=== PATIENT | female | born 1975 | race Caucasian/White ===

== ENCOUNTER 2024-05-04 04:18 | Emergency (ER) | payer OTHER, SELFPAY ==
[2024-05-04] VITALS (9 sets, daily range): BP systolic 97–137; BP diastolic 46–80; PULSE 59–87; RESP 15–18; TEMP 36.7; O2SAT 94–99; BMI 24.7
--- NOTE | 2024-05-04 04:40 | ED_ITS ---
Documented by User: Bandar Ariza DO 05/04/24 04:42 HPI - Nausea/Vomiting/Diarrhea 2 General: Chief complaint: Nausea/Vomiting/Diarrhea Stated complaint: N/V Time Seen by Provider: 05/04/24 04:21 History of Present Illness: Patient presents with nausea and vomiting. Patient does have a seizure history and is on 3 seizure medicines. Patient is unable to keep those down for the most part except most recent dose. Approximate last 24 hours and has multiple seizures during this time. Patient getting dehydrated. Patient says he thinks she may have got food poisoning. Related Data Home Medications Medication Instructions Recorded Confirmed cenobamate 50 mg tablet (Xcopri) 50 mg PO 1XD 05/04/24 05/04/24 gabapentin 100 mg capsule mg 05/04/24 05/04/24 lamotrigine 100 mg tablet 300 mg PO 2XD 05/04/24 05/04/24 zonisamide 100 mg capsule 300 mg PO BID 05/04/24 05/04/24 Previous Rx's Medication Instructions Recorded lorazepam 2 mg tablet (Ativan) 1 - 2 mg (0.5 - 1 x 2 mg) PO Q6H 05/04/24 PRN nausea and vomiting #14 tabs Allergies Allergy/AdvReac Type Severity Reaction Status Date / Time levetiracetam [From [facility]] Allergy ADR-Agitate Verified 05/04/24 04:29 d Review of Systems 2 General: Reports: 10 or more systems reviewed and unremarkable except in HPI and below PFSH ED 2 PFSH: Medical History (Updated 05/04/24 @ 09:08 by Steven Kent DO) Seizure Surgical History (Updated 05/04/24 @ 06:33 by Steven Kent DO) Hx of appendectomy Hx of cholecystectomy Hx of hysterectomy Physical Exam 2 Const: COMMON NORMALS: no acute distress, average body habitus, patient oriented x3, no limitations, healthy appearing, alert and well nourished HENMT: COMMON NORMALS: normocephalic, atraumatic, hearing grossly normal bilaterally, external ears normal, Normal external nose present and moist oral mucous membranes HEAD & SCALP: normocephalic and atraumatic NOSE: Normal external nose present EXTERNAL EAR: Yes external ears normal Neck/C-Spine: COMMON NORMALS: no JVD Chest: COMMONS NORMALS: normal inspection of the chest and normal palpation of entire chest wall Resp: COMMON NORMALS: normal respiratory effort, No retractions, No use of accessory muscles and clear to auscultation bilaterally AUSCULTATION: clear to auscultation bilaterally Cardio: COMMON NORMALS: no JVD, regular rate, regular rhythm, S1 normal heart sound present, S2 normal heart sound present, No gallops present (Cardio), No clicks present (Cardio), No murmurs present (Cardio) and No rub (Cardio) R ATE: regular rate RHYTHM: regular rhythm HEART SOUNDS: S1 normal heart sound present and S2 normal heart sound present GI: COMMON NORMALS: Normal to inspection, nondistended, normoactive bowel sounds present, Soft to palpation, non-tender, No hepatosplenomegaly present and no masses PALPATION: Yes Soft to palpation and Yes No hepatosplenomegaly present Neuro: COMMON NORMALS: patient oriented x3 SENSORIUM/ORIENTATION: Yes alert Course 2 Vital Signs: Vital signs: Vital Signs Temperature 98.0 F 05/04/24 04:24 Pulse Rate 71 05/04/24 09:21 Respiratory Rate 15 05/04/24 05:28 Blood Pressure 134/73 05/04/24 09:21 Pulse Oximetry 96 05/04/24 09:21 Oxygen Delivery Me thod Room Air 05/04/24 09:00 MDM - Nausea/Vomiting/Diarrhea Differential Diagnosis Likely food poisoning and gastroenteritis Medical Records I reviewed the patient's medical records. Lab Data I reviewed the patient's lab results. 05/04/24 04:44 05/04/24 04:44 Radiology Impressions Abdomen/Pelvis CT 05/04/24 06:32 IMPRESSION: No acute subdiaphragmatic pathology. Laboratory Results WBC 11.50 10^3/uL (3.29-11.43) H 05/04/24 04:44 RBC 4.35 10^6/uL (3.85-5.65) 05/04/24 04:44 Hgb 13.50 g/dL (11.27-16.99) 05/04/24 04:44 Hct 40.2 % (36-47) 05/04/24 04:44 MCV 92.4 fl (85-98) 05/04/24 04:44 MCH 31.0 pg (27-33) 05/04/24 04:44 MCHC 33.6 g/dL (30-55) 05/04/24 04:44 RDW 11.9 % (12.1-15.1) L 05/04/24 04:44 Plt Count 294 10^3/cmm (157-399) 05/04/24 04:44 MPV 9.2 fL (7.4-10.4) 05/04/24 04:44 Neut % (Auto) 92.5 % 05/04/24 04:44 Lymph % (Auto) 4.3 % 05/04/24 04:44 [place] % (Auto) 2.8 % 05/04/24 04:44 Eos % (Auto) 0.0 % 05/04/24 04:44 Baso % (Auto) 0.1 % 05/04/24 04:44 Neut # (Auto) 10.64 10^3/uL (1.8-7.7) H 05/04/24 04:44 Lymph # (Auto) 0.5 10^3/uL (0.8-4.8) L 05/04/24 04:44 [place] # (Auto) 0.3 10^3/uL (0.2-0.9) 05/04/24 04:44 Eos # (Auto) 0.0 10^3/uL (0.0-0.8) 05/04/24 04:44 Baso # (Auto) 0.0 10^3/uL (0.0-0.1) 05/04/24 04:44 Nucleated RBC % (auto) 0 % 05/04/24 04:44 Nucleated RBCs # 0.0 /100WBC 05/04/24 04:44 Sodium 135 mmol/L (136-145) L 05/04/24 04:44 Potassium 3.1 mmol/L (3.5-5.1) L 05/04/24 04:44 Chloride 102 mmol/L (98-107) 05/04/24 04:44 Carbon Dioxide 18 mmol/L (22-29) L 05/04/24 04:44 Anion Gap 18.1 (5-19) 05/04/24 04:44 BUN 16 mg/dL (6-20) 05/04/24 04:44 Creatinine 0.8 mg/dL (0.5-0.9) 05/04/24 04:44 GFR Calculation 76.9 mL/min (90-130) L 05/04/24 04:44 Glucose 123 mg/dL (65-115) H 05/04/24 04:44 Calculated Osmolality 283 mOsm/kg (285-295) L 05/04/24 04:44 Calcium 8.8 mg/dL (8.5-10.5) 05/04/24 04:44 Magnesium 1.7 mg/dL (1.7-2.3) 05/04/24 04:44 Total Bilirubin 0.2 mg/dL (0.15-1.2) 05/04/24 04:44 AST 38 U/L (0-32) H 05/04/24 04:44 ALT 55 U/L (0-33) H 05/04/24 04:44 Alkaline Phosphatase 157 U/L (35-105) H 05/04/24 04:44 Total Protein 6.9 g/dL (6.6-8.7) 05/04/24 04:44 Albumin 3.9 g/dL (3.5-5.2) 05/04/24 04:44 Globulin 3.0 g/dL (1.3-4.6) 05/04/24 04:44 Lipase 22 U/L (13-60) 05/04/24 04:44 Urine Color Yellow (Yellow) 05/04/24 06:27 Urine Appearance Clear (CLEAR) 05/04/24 06:27 Urine pH 6.0 (5-7) 05/04/24 06:27 Ur Specific [place] 1.018 (1.005-1.030) 05/04/24 06:27 Urine Protein 1+ (Negative) A 05/04/24 06:27 Urine Glucose (UA) Negative (Normal) 05/04/24 06:27 Urine Ketones 2+ (Negative) H 05/04/24 06:27 Urine Blood Negative (Negative) 05/04/24 06:27 Urine Nitrate Negative (Negative) 05/04/24 06:27 Urine Bilirubin Negative (Negative) 05/04/24 06:27 Urine Urobilinogen 1.0 mg/dL (Negative) 05/04/24 06:27 Ur Leukocyte Esterase Negative (Negative) 05/04/24 06:27 Urine RBC 0-4 /hpf (0-2) H 05/04/24 06:27 Urine WBC 0-4 /hpf (0-5) H 05/04/24 06:27 Ur Squamous Epith Cells 5-10 /hpf (0-5) H 05/04/24 06:27 Amorphous Sediment Not Reportable 05/04/24 06:27 Urine Bacteria 1+ /hpf (NONE) H 05/04/24 06:27 Hyaline Casts 0-4 /lpf H 05/04/24 06:27 Urine Mucus 1+ /hpf 05/04/24 06:27 All radiology interpretation(s) finalized by discharge Discharge Plan Discharge Patient Disposition: Home Clinical Impression: Nausea & vomiting, Seizure Condition: Stable Prescriptions: New Ativan 2 mg tablet 1 - 2 mg PO Q6H PRN (Reason: nausea and vomiting) Qty: 14 0RF No Action Xcopri 50 mg tablet 50 mg PO 1XD lamotrigine 100 mg tablet 300 mg PO 2XD zonisamide 100 mg Capsule 300 mg PO BID gabapentin 100 mg capsule Discharge Orders: Discharge ED (Routine); Ordered 05/04/24 Ordered By: Steven Kent Discharge Diet: Clear Liquid Discharge Activity: Resume usual activity Patient Instructions: Opioid Safety, Pain Management Activity Restrictions/Additional Instructions: Thank you for choosing [facility] for your healthcare needs today. It is very important that you follow up as instructed or that you return to the Emergency Department should you have concerns or if your condition changes or worsens in any way. You are seen in the emergency room for persistent nausea and vomiting. Laboratory status showed a very slight elevation in your white count as well as a slight increase in your liver enzymes. A CT of your abdomen was done in the emergency room did not show any acute pathology. Your potassium was also slightly low. Recommend that you use a clear liquid diet for the next 1 to 2 days and advance as tolerated. Because of your seizure history we gave you Ativan to use for nausea vomiting as needed. This medication is very safe to use with a history of seizures but can be somewhat sedating, avoid driving or using any tools or equipment or participating in any activities that may be risky when somewhat sedated. Do recommend you follow-up with your primary care doctor to have repeat liver functions and recheck of your potassium done when you return home. Sign Out Sign Out Data: Patient Sign Out occurred on 05/04/24 at 05:48. Patient's care was discussed, and care was transferred from Bandar Ariza DO to Steven Kent DO. Coding Level of Care Code ED [employer] for [employer] Documented by User: Steven Kent DO 05/04/24 11:31 HPI - Nausea/Vomiting/Diarrhea 2 General: Chief complaint: Nausea/Vomiting/Diarrhea Stated complaint: N/V Time Seen by Provider: 05/04/24 04:21 Related Data Home Medications Medication Instructions Recorded Confirmed cenobamate 50 mg tablet (Xcopri) 50 mg PO 1XD 05/04/24 05/04/24 gabapentin 100 mg capsule mg 05/04/24 05/04/24 lamotrigine 100 mg tablet 300 mg PO 2XD 05/04/24 05/04/24 zonisamide 100 mg capsule 300 mg PO BID 05/04/24 05/04/24 Previous Rx's Medication Instructions Recorded lorazepam 2 mg tablet (Ativan) 1 - 2 mg (0.5 - 1 x 2 mg) PO Q6H 05/04/24 PRN nausea and vomiting #14 tabs Allergies Allergy/AdvReac Type Severity Reaction Status Date / Time levetiracetam [From [facility]] Allergy ADR-Agitate Verified 05/04/24 04:29 d PFSH ED 2 PFSH: Medical History (Updated 05/04/24 @ 09:08 by Steven Kent DO) Seizure Surgical History (Updated 05/04/24 @ 06:33 by Steven Kent DO) Hx of appendectomy Hx of cholecystectomy Hx of hysterectomy Course 2 Vital Signs: Vital signs: Vital Signs Temperature 98.0 F 05/04/24 04:24 Pulse Rate 71 05/04/24 09:21 Respiratory Rate 15 05/04/24 05:28 Blood Pressure 134/73 05/04/24 09:21 Pulse Oximetry 96 05/04/24 09:21 Oxygen Delivery Me thod Room Air 05/04/24 09:00 MDM - Nausea/Vomiting/Diarrhea Medical Decision Making Care assumed at change of shift from Dr. Ariza. Patient has not had any further nausea or vomiting. All of her medications are p.o. for seizure she did not take any last night reports she had 4 seizures overnight she not had any since she got here she did have really good improvement of the nausea with the Ativan. was able to retrieve her oral medications from the car given to her without any problems she did not have any further vomiting. At this point they like to be discharged they are heading back to [place]. Labs and imaging reviewed no significant findings. I do not think there is any reason to admit her or seizure issue has been a longstanding issue for him is very present poorly controlled despite 3 medications. Will use Ativan for nausea and vomiting as this also will have no protective seizures as opposed to using higher doses of typical antiemetics. CT abdomen pelvis did not show any significant pathology. Follow-up with her primary care doctor. Lab Data 05/04/24 04:44 05/04/24 04:44 Radiology Impressions Abdomen/Pelvis CT 05/04/24 06:32 IMPRESSION: No acute subdiaphragmatic pathology. Laboratory Results WBC 11.50 10^3/uL (3.29-11.43) H 05/04/24 04:44 RBC 4.35 10^6/uL (3.85-5.65) 05/04/24 04:44 Hgb 13.50 g/dL (11.27-16.99) 05/04/24 04:44 Hct 40.2 % (36-47) 05/04/24 04:44 MCV 92.4 fl (85-98) 05/04/24 04:44 MCH 31.0 pg (27-33) 05/04/24 04:44 MCHC 33.6 g/dL (30-55) 05/04/24 04:44 RDW 11.9 % (12.1-15.1) L 05/04/24 04:44 Plt Count 294 10^3/cmm (157-399) 05/04/24 04:44 MPV 9.2 fL (7.4-10.4) 05/04/24 04:44 Neut % (Auto) 92.5 % 05/04/24 04:44 Lymph % (Auto) 4.3 % 05/04/24 04:44 [place] % (Auto) 2.8 % 05/04/24 04:44 Eos % (Auto) 0.0 % 05/04/24 04:44 Baso % (Auto) 0.1 % 05/04/24 04:44 Neut # (Auto) 10.64 10^3/uL (1.8-7.7) H 05/04/24 04:44 Lymph # (Auto) 0.5 10^3/uL (0.8-4.8) L 05/04/24 04:44 [place] # (Auto) 0.3 10^3/uL (0.2-0.9) 05/04/24 04:44 Eos # (Auto) 0.0 10^3/uL (0.0-0.8) 05/04/24 04:44 Baso # (Auto) 0.0 10^3/uL (0.0-0.1) 05/04/24 04:44 Nucleated RBC % (auto) 0 % 05/04/24 04:44 Nucleated RBCs # 0.0 /100WBC 05/04/24 04:44 Sodium 135 mmol/L (136-145) L 05/04/24 04:44 Potassium 3.1 mmol/L (3.5-5.1) L 05/04/24 04:44 Chloride 102 mmol/L (98-107) 05/04/24 04:44 Carbon Dioxide 18 mmol/L (22-29) L 05/04/24 04:44 Anion Gap 18.1 (5-19) 05/04/24 04:44 BUN 16 mg/dL (6-20) 05/04/24 04:44 Creatinine 0.8 mg/dL (0.5-0.9) 05/04/24 04:44 GFR Calculation 76.9 mL/min (90-130) L 05/04/24 04:44 Glucose 123 mg/dL (65-115) H 05/04/24 04:44 Calculated Osmolality 283 mOsm/kg (285-295) L 05/04/24 04:44 Calcium 8.8 mg/dL (8.5-10.5) 05/04/24 04:44 Magnesium 1.7 mg/dL (1.7-2.3) 05/04/24 04:44 Total Bilirubin 0.2 mg/dL (0.15-1.2) 05/04/24 04:44 AST 38 U/L (0-32) H 05/04/24 04:44 ALT 55 U/L (0-33) H 05/04/24 04:44 Alkaline Phosphatase 157 U/L (35-105) H 05/04/24 04:44 Total Protein 6.9 g/dL (6.6-8.7) 05/04/24 04:44 Albumin 3.9 g/dL (3.5-5.2) 05/04/24 04:44 Globulin 3.0 g/dL (1.3-4.6) 05/04/24 04:44 Lipase 22 U/L (13-60) 05/04/24 04:44 Urine Color Yellow (Yellow) 05/04/24 06:27 Urine Appearance Clear (CLEAR) 05/04/24 06:27 Urine pH 6.0 (5-7) 05/04/24 06:27 Ur Specific [place] 1.018 (1.005-1.030) 05/04/24 06:27 Urine Protein 1+ (Negative) A 05/04/24 06:27 Urine Glucose (UA) Negative (Normal) 05/04/24 06:27 Urine Ketones 2+ (Negative) H 05/04/24 06:27 Urine Blood Negative (Negative) 05/04/24 06:27 Urine Nitrate Negative (Negative) 05/04/24 06:27 Urine Bilirubin Negative (Negative) 05/04/24 06:27 Urine Urobilinogen 1.0 mg/dL (Negative) 05/04/24 06:27 Ur Leukocyte Esterase Negative (Negative) 05/04/24 06:27 Urine RBC 0-4 /hpf (0-2) H 05/04/24 06:27 Urine WBC 0-4 /hpf (0-5) H 05/04/24 06:27 Ur Squamous Epith Cells 5-10 /hpf (0-5) H 05/04/24 06:27 Amorphous Sediment Not Reportable 05/04/24 06:27 Urine Bacteria 1+ /hpf (NONE) H 05/04/24 06:27 Hyaline Casts 0-4 /lpf H 05/04/24 06:27 Urine Mucus 1+ /hpf 05/04/24 06:27 Discharge Plan Discharge Patient Disposition: Home Clinical Impression: Nausea & vomiting, Seizure Condition: Stable Prescriptions: New Ativan 2 mg tablet 1 - 2 mg PO Q6H PRN (Reason: nausea and vomiting) Qty: 14 0RF No Action Xcopri 50 mg tablet 50 mg PO 1XD lamotrigine 100 mg tablet 300 mg PO 2XD zonisamide 100 mg Capsule 300 mg PO BID gabapentin 100 mg capsule Discharge Orders: Discharge ED (Routine); Ordered 05/04/24 Ordered By: Steven Kent Discharge Diet: Clear Liquid Discharge Activity: Resume usual activity Patient Instructions: Opioid Safety, Pain Management Activity Restrictions/Additional Instructions: Thank you for choosing [facility] for your healthcare needs today. It is very important that you follow up as instructed or that you return to the Emergency Department should you have concerns or if your condition changes or worsens in any way. You are seen in the emergency room for persistent nausea and vomiting. Laboratory status showed a very slight elevation in your white count as well as a slight increase in your liver enzymes. A CT of your abdomen was done in the emergency room did not show any acute pathology. Your potassium was also slightly low. Recommend that you use a clear liquid diet for the next 1 to 2 days and advance as tolerated. Because of your seizure history we gave you Ativan to use for nausea vomiting as needed. This medication is very safe to use with a history of seizures but can be somewhat sedating, avoid driving or using any tools or equipment or participating in any activities that may be risky when somewhat sedated. Do recommend you follow-up with your primary care doctor to have repeat liver functions and recheck of your potassium done when you return home. Sign Out Sign Out Data: Patient Sign Out occurred on 05/04/24 at 05:48. Patient's care was discussed, and care was transferred from Bandar Ariza DO to Steven Kent DO. Coding Level of Care Code ED [employer] Builder for Chicho Castillo
[2024-05-04 04:48] LABS: Basophils % 0.1 %; Hematocrit 40.2 % (36-47); Lymphocytes # 0.5 10^3/uL (0.8-4.8); Lymphocytes % 4.3 %; Mean Corpuscular HGB Conc 33.6 g/dL (30-55); Mean Corpuscular Volume 92.4 fl (85-98); Mean Platelet Volume 9.2 fL (7.4-10.4); Monocytes # 0.3 10^3/uL (0.2-0.9); Monocytes % 2.8 %; Neutrophils # 10.64 10^3/uL (1.8-7.7); Neutrophils % 92.5 %; Nucleated Red Blood Cells % 0 %; Platelet Count 294 10^3/cmm (157-399); Red Blood Count 4.35 10^6/uL (3.85-5.65); Red Cell Distribution Width 11.9 % (12.1-15.1)
[2024-05-04] MEDS: sodium chloride 0.9% 1,000 ML 999 ML IV (04:59)
[2024-05-04] MEDS: diphenhydrAMINE 50 mg/mL SDV 1mL 25 MG IVP (04:59)
[2024-05-04] MEDS: metoclopramide 5 mg/mL SDV 2 mL 10 MG IVP (04:59)
[2024-05-04 05:08] LABS: Alanine Aminotransferase 55 U/L (0-33); Albumin Level 3.9 g/dL (3.5-5.2); Alkaline Phosphatase 157 U/L (35-105); Anion Gap 18.1 (5-19); Aspartate Amino Transferase 38 U/L (0-32); Blood Urea Nitrogen 16 mg/dL (6-20); Calcium 8.8 mg/dL (8.5-10.5); Carbon Dioxide 18 mmol/L (22-29); Chloride 102 mmol/L (98-107); Creatinine Clr Calc Pharmacy 78.0086; Glomerular Filtration Rate 76.9 mL/min (90-130); Glucose 123 mg/dL (65-115); Magnesium 1.7 mg/dL (1.7-2.3); Osmolality Calculated 283 mOsm/kg (285-295); Potassium 3.1 mmol/L (3.5-5.1); Sodium 135 mmol/L (136-145); Total Bilirubin 0.2 mg/dL (0.15-1.2); Total Protein 6.9 g/dL (6.6-8.7)
[2024-05-04] MEDS: potassium chloride ER 20 mEq Tablet 40 MEQ PO (05:36)
--- NOTE | 2024-05-04 06:32 | CTR_ITS ---
PROCEDURE INFORMATION: Exam: CT Abdomen And Pelvis With Contrast Exam date and time: 05/04/2024 6:43 AM Age: 49 years old Clinical indication: Nausea and vomiting; Prior surgery; Surgery date: 6+ months; Surgery type: Gb, hyst, appy; Additional info: Abd pain TECHNIQUE: Imaging protocol: Computed tomography of the abdomen and pelvis with contrast. Radiation optimization: All CT scans at this facility use at least one of these dose optimization techniques: automated exposure control; mA and/or kV adjustment per patient size (includes targeted exams where dose is matched to clinical indication); or iterative reconstruction. Contrast material: [id number]; Contrast volume: 100 ml; Contrast route: INTRAVENOUS (IV); COMPARISON: CT abdomen pelvis w con* [id number] 03/05/2019 4:40 PM RADIATION DOSE METRICS: Total DLP (mGy-cm): 391 FINDINGS: Liver: Normal. No mass. Gallbladder and biliary ducts: Cholecystectomy. Pancreas: Normal. No ductal dilation. Spleen: Normal. No splenomegaly. Adrenal glands: Normal. No mass. Kidneys and ureters: Normal. No hydronephrosis. Stomach and bowel: Unremarkable. No obstruction. No mucosal thickening. Appendix: No evidence of appendicitis. Intraperitoneal space: Unremarkable. No free air. No significant fluid collection. Vasculature: Unremarkable. No abdominal aortic aneurysm. Lymph nodes: Unremarkable. No enlarged lymph nodes. Urinary bladder: Unremarkable as visualized. Reproductive: Hysterectomy. Bones/joints: Unremarkable. No acute fracture. Soft tissues: Unremarkable. CT/CT abdomen pelvis w con* [id number] IMPRESSION: No acute subdiaphragmatic pathology.
[2024-05-04 06:36] LABS: Charge for UA Resulting for Rev
[2024-05-04 06:44] LABS: Bilirubin Urine Negative (Negative); Blood Urine Negative (Negative); Glucose Urine UA Negative (Normal); Ketones Urine 2+ (Negative); Leukocyte Esterase Urine Negative (Negative); Nitrate Urine Negative (Negative); Protein Urine 1+ (Negative); Specific Gravity, Urine 1.018 (1.005-1.030); Urine Appearance Clear (CLEAR); Urine Color Yellow (Yellow)
[2024-05-04] MEDS: iohexol 350 mg/mL 500 mL Btl (per mL) IV (06:53)
[2024-05-04 07:05] LABS: Bacteria Urine 1+ /hpf; Hyaline Casts Urine 0-4 /lpf; Mucus Urine 1+ /hpf; RBC Urine 0-4 /hpf (0-2); UA Manual Slide Review YES; WBC Urine 0-4 /hpf (0-5)
[2024-05-04 07:06] LABS: Add Urine Culture? No
[2024-05-04 07:29] LABS: Lipase 22 U/L (13-60)
--- NOTE | 2024-05-04 08:57 | PC.NURSE ---
VERBAL ORDERS FROM DR CLARK FOR PT TO TAKE HER HOME SEIZURE MEDICATIONS.
== END 2024-05-04 09:23 | disposition home or self-care (01) ==
PROVIDERS: Emergency Medicine; Emergency Provider Family Medicine
DX: R11.2 Nausea with vomiting, unspecified (principal); R56.9 Unspecified convulsions
CPT/HCPCS: 74177; 80053; 81003; 81015; 83690; 83735; 85025; 96360; 96361; 99285; J1200; J2765; J7030